=== PATIENT | female | born 1970 | race American Indian/Alaskan Native ===

== ENCOUNTER 2017-10-13 09:43 | Inpatient (IN) | payer OTHER ==
--- NOTE | 2017-10-13 10:39 | ED PDOC ---
Arrival/HPI - General Chief Complaint: Abnormal Skin Integrity Time Seen by Provider: 10/13/17 09:54 Historian: Patient - History of Present Illness Narrative History of Present Illness (Text): 10/13/17 10:36 47yo female with PMHx of Diabetes referred to ED by Dr. Kathleen for left arm infection. Patient reports few weeks history of chest and abdominal wall infection. States she has been on oral antibiotics and developed the left arm infection few days ago. She saw her PMD today and was referred to ED. she denies fever, chills, nausea, vomiting, abdominal pain, chest pain, any other complaint. Past Medical History - Provider Review Nursing Documentation Reviewed: Yes - Cardiac Hx Cardiac Disorders: No - Pulmonary Hx Respiratory Disorders: Yes Hx Asthma: Yes - Neurological Hx Neurological Disorder: No - HEENT Hx HEENT Disorder: No - Renal Hx Renal Disorder: No - Endocrine/Metabolic Hx Endocrine Disorders: Yes Hx Diabetes Mellitus Type 2: Yes - Hematological/Oncological Hx Blood Disorders: No - Integumentary Hx Dermatological Disorder: Yes Hx Cellulitis: Yes - Musculoskeletal/Rheumatological Hx Musculoskeletal Disorders: No - Gastrointestinal Hx Gastrointestinal Disorders: No - Genitourinary/Gynecological Hx Genitourinary Disorders: Yes (PCOS) - Psychiatric Hx Psychophysiologic Disorder: Yes Hx Anxiety: Yes Hx Depression: Yes Hx Substance Use: No - Surgical History Hx Section: Yes Hx Orthopedic Surgery: Yes Other/Comment: Multiple cyst removal, breast reduction Family/Social History - Physician Review Nursing Documentation Reviewed: Yes Family/Social History: Unknown Family HX Smoking Status: Light Smoker < 10 Cigarettes Daily Hx Alcohol Use: No Hx Substance Use: No Allergies/Home Meds Allergies/Adverse Reactions: Allergies amoxicillin Allergy (Verified 10/13/17 10:05) ITCHING ciprofloxacin [From Cipro] Allergy (Verified 10/13/17 10:05) ITCHING shellfish derived Allergy (Verified 10/13/17 10:05) ANAPHYLAXIS sulfamethoxazole [From Bactrim] Allergy (Verified 10/13/17 10:05) RASH if dose is >500mg tree nut Allergy (Verified 10/13/17 10:05) ANAPHYLAXIS trimethoprim [From Bactrim] Allergy (Verified 10/13/17 10:05) RASH flu vaccine Allergy (Uncoded 10/13/17 14:42) VOMITING vomited x 2 hours Home Medications: Home Meds Medication Instructions Recorded Confirmed Escitalopram [Lexapro] 10 mg PO DAILY 10/13/17 10/13/17 Fluconazole [Diflucan] 150 mg PO DAILY 10/13/17 10/13/17 Linaclotide [Linzess] 72 mcg PO DAILY 10/13/17 10/13/17 Losartan [Cozaar] 25 mg PO DAILY 10/13/17 10/13/17 Naproxen [Naprosyn] 500 mg PO BID 10/13/17 10/13/17 Review of Systems - Physician Review All systems were reviewed & negative as marked: Yes - Review of Systems Constitutional: Normal Eyes: Normal ENT: Normal Respiratory: Normal Cardiovascular: Normal Gastrointestinal: Normal Genitourinary Female: Normal Musculoskeletal: Normal Skin: Abscess (LEft arm/abdominal wall/chest wall), Cellulitis Neurological: Normal Endocrine: Normal Hemo/Lymphatic: Normal Psychiatric: Normal Physical Exam Vital Signs Reviewed: Yes Vital Signs Pulse Resp BP Pulse Ox 10/13/17 12:21 87 16 125/80 99 Temperature: Afebrile Blood Pressure: Normal Pulse: Regular Respiratory Rate: Normal Appearance: Positive for: Well-Appearing, Non-Toxic, Comfortable Pain Distress: None Mental Status: Positive for: Alert and Oriented X 3 - Systems Exam Head: Present: Atraumatic, Normocephalic Pupils: Present: PERRL Extroacular Muscles: Present: EOMI Conjunctiva: Present: Normal Mouth: Present: Moist Mucous Membranes Neck: Present: Normal Range of Motion Respiratory/Chest: Present: Clear to Auscultation, Good Air Exchange. No: Respiratory Distress, Accessory Muscle Use Cardiovascular: Present: Regular Rate and Rhythm, Normal S1, S2. No: Murmurs Abdomen: No: Tenderness, Distention, Peritoneal Signs Back: Present: Normal Inspection Upper Extremity: Present: Normal Inspection. No: Cyanosis, Edema Lower Extremity: Present: Normal Inspection. No: Edema Neurological: Present: GCS=15, CN II-XII Intact, Speech Normal Skin: Present: Warm, Dry, Normal Color, Abscess (Approximately 5 x 3cm area of induration to right proximal upper arm with overlaying erythema. Warm to touch. Drainging abscess noted under right breast and abdominal wall.). No: Rashes Psychiatric: Present: Alert, Oriented x 3, Normal Insight, Normal Concentration Medical Decision Making ED Course and Treatment: 10/13/17 19:43 Pt presented for stated history. She was hemodynamically stable. Lab was unremarkable without leukocytosis. Pt failed outpt abx and will be admitted for IV abx Vanco and Rocephin ordered. Blood culture pending Case was DW Dr. Kathleen and pt was admitted to his service. He requested Dr. Lantigua and Dr. Bojorquez consult. 0 - Lab Interpretations Lab Results: 10/13/17 10:30 10/13/17 10:30 Lab Results 10/13/17 10:30: Sodium 142, Potassium 3.6, Chloride 102, Carbon Dioxide 26, Anion Gap 18, BUN 7, Creatinine 0.5 L, Est GFR ( Amer) > 60, Est GFR (Non -Af Amer) > 60, Random Glucose 259 H, Calcium 9.2, Total Bilirubin 0.5, AST 25, ALT 15, Alkaline Phosphatase 88, Total Protein 7.6, Albumin 4.1, Globulin 3.5, Albumin/Globulin Ratio 1.2 10/13/17 10:30: Urine Color Light red, Urine Appearance Cloudy, Urine pH 6.0, Ur Specific [place] 1.020, Urine Protein 30 H, Urine Glucose (UA) >=1000, Urine Ketones Negative, Urine Blood Large H, Urine Nitrate Negative, Urine Bilirubin Negative, Urine Urobilinogen 1.0 H, Ur Leukocyte Esterase Negative, Urine RBC Tntc, Urine WBC 2 - 5, Ur Epithelial Cells 6 - 8, Urine Bacteria Many 10/13/17 10:30: PT 11.9, INR 1.03, APTT 34.7 10/13/17 10:30: WBC 10.6, RBC 4.55, Hgb 14.2, Hct 40.6, MCV 89.2, MCH 31.2, MCHC 35.0, RDW 12.7, Plt Count 348, MPV 8.8, Gran % 64.7, Lymph % (Auto) 27.8, [place] % (Auto) 5.7, Eos % (Auto) 1.5, Baso % (Auto) 0.3, Gran # 6.84 H, Lymph # ( Auto) 2.9, [place] # (Auto) 0.6, Eos # (Auto) 0.2, Baso # (Auto) 0.03 - Medication Orders Current Medication Orders: Escitalopram Oxalate (Lexapro) 10 mg PO DAILY RICCARDO Meropenem (Merrem Iv 1 Gm Premix) 50 mls @ 100 mls/hr IVPB Q8 RICCARDO PRN Reason: Protocol Stop: 10/21/17 22:01 Daptomycin 590 mg/ Sodium (Chloride) 100 mls @ 200 mls/hr IV Q24H RICCARDO Stop: 10/22/17 19:01 Insulin Human Regular (Humulin R Med) 0 units SC ACHS RICCARDO PRN Reason: Protocol Losartan Potassium (Cozaar) 25 mg PO DAILY RICCARDO Discontinued Medications Diphenhydramine HCl (Benadryl) 25 mg IVP STAT STA Stop: 10/13/17 11:35 Last Admin: 10/13/17 11:45 Dose: 25 mg IVP Administration Document 10/13/17 11:45 MS (Rec: 10/13/17 11:45 MS [id number]) Charges for Administration # of IVP Administrations 1 Ceftriaxone Sodium (Rocephin 1 Gram Ivpb) 1 gm in 100 mls @ 200 mls/hr IVPB STAT STA PRN Reason: Protocol Stop: 10/13/17 11:10 Last Admin: 10/13/17 11:21 Dose: 200 mls/hr eMAR Start Stop Document 10/13/17 11:21 MS (Rec: 10/13/17 11:23 MS [id number]) Intravenous Solution Start Date 10/13/17 Start Time 11:23 End Date 10/13/17 End time 11:53 Total Infusion Time 30 Vancomycin HCl (Vancomycin 1gm) 1 gm in 250 mls @ 167 mls/hr IVPB STAT STA PRN Reason: Protocol Stop: 10/13/17 12:11 Last Admin: 10/13/17 11:45 Dose: 167 mls/hr eMAR Start Stop Document 10/13/17 11:45 MS (Rec: 10/13/17 11:45 MS [id number]) Intravenous Solution Start Date 10/13/17 Start Time 11:45 End Date 10/13/17 End time 13:15 Total Infusion Time 90 Pneumococcal Polyvalent Vaccine (Pneumovax 23 Vaccine) 0.5 ml IM .ONCE ONE Stop: 10/13/17 15:01 Disposition/Present on Arrival - Present on Arrival Any Indicators Present on Arrival: No History of DVT/PE: No History of Uncontrolled Diabetes: No Urinary Catheter: No History of Decub. Ulcer: No History Surgical Site Infection Following: None - Disposition Have Diagnosis and Disposition been Completed?: Yes Diagnosis: Cellulitis, Abscess Disposition: HOSPITALIZED Disposition Time: 11:50 Patient Problems: Current Active Problems Problem Status Onset Abscess Acute Cellulitis Acute Condition: STABLE
[2017-10-13] MEDS ORDERED: cefTRIAXone 1 gm 1 GM/100 ML BAG IVPB STA (10:41)
[2017-10-13] MEDS ORDERED: Vancomycin 1gm in NS 250ml 1 GM/250 ML BAG IVPB STA (10:42)
[2017-10-13 10:47] LABS: BASO # 0.03 K/mm3 (0.0-2.0); BASO % 0.3 % (0.0-3.0); EOS # 0.2 (0.0-0.7); EOS % 1.5 % (1.5-5.0); GRAN # 6.84 (1.4-6.5); GRAN % 64.7 % (50.0-68.0); HEMOGLOBIN 14.2 g/dL (12.0-16.0); LYMPH # 2.9 (1.2-3.4); LYMPH % 27.8 % (22.0-35.0); MEAN CELL VOLUME 89.2 fl (80.0-105.0); MEAN CORPUSCULAR HEMOGLOBIN 31.2 pg (25.0-35.0); MEAN PLATELET VOLUME 8.8 fl (7.0-11.0); MONO # 0.6 (0.1-0.6); MONO % 5.7 % (1.0-6.0); RBC 4.55 10^6/uL (3.5-6.1); RED CELL DISTRIBUTION WIDTH 12.7 % (11.5-14.5); URINE BILIRUBIN NEGATIVE (NEGATIVE); URINE BLOOD LARGE (NEGATIVE); URINE GLUCOSE (UA) >=1000 mg/dL (NEGATIVE); URINE LEUKOCYTE ESTERASE NEGATIVE Leu/uL (NEGATIVE); URINE PROTEIN 30 mg/dL (<30 mg/dL); WHITE BLOOD COUNT 10.6 10^3/ul (4.5-11.0)
[2017-10-13 10:52] LABS: URINE APPEARANCE CLOUDY (CLEAR); URINE COLOR LIGHT RED (YELLOW)
[2017-10-13 10:58] LABS: URINE BACTERIA MANY (NEG); URINE RBC TNTC /hpf (0-2)
[2017-10-13 11:02] LABS: INR 1.03 (0.93-1.08); PARTIAL THROMBOPLASTIN TIME 34.7 Seconds (25.1-36.5); PROTHROMBIN TIME 11.9 SECONDS (9.4-12.5)
[2017-10-13] MEDS ORDERED: DiphenhydrAMINE 50 mg/ml Inj IVP STA (11:34)
[2017-10-13] MEDS ORDERED: DiphenhydrAMINE 50 mg/ml Inj ONE (11:35)
[2017-10-13 12:06] LABS: ALB/GLOB RATIO 1.2 (1.1-1.8); ALBUMIN 4.1 g/dL (3.0-4.8); ALT/SGPT 15 U/L (7-56); AST/SGOT 25 U/L (14-36); BLOOD UREA NITROGEN 7 mg/dL (7-21); CALCIUM 9.2 mg/dL (8.4-10.5); GFR AFRICAN-AMERICAN > 60; GFR NON-AFRICAN AMERICAN > 60
--- NOTE | 2017-10-13 12:25 | CP.PCM.CON ---
History of Present Illness - History of Present Illness History of Present Illness: Parker Sanchez PGY 1 surgery consult note for Dr. Lantigua Ms. Domingo is a 47-year-old -[place] female with a past medical history of DM 2, asthma, multiple abscesses status post I&D and cellulitis who presents to the ED for left axillary swelling and pain; patient also states that she has multiple other abscesses that are draining, including an her right breast crease and in the groin. General surgery is consulted for evaluation and management of the abscesses. Patient denies fevers, nausea/vomiting. She does however complain of chills and extreme pain specifically in the left axilla that is exacerbated by touch or movement. 12-pt ROS was reviewed and examined and is otherwise unremarkable. PMH: As above PSH: , multiple I&D's, breast reduction Meds: As per MAR Allergies: Several antibiotics as stated on [employer] SHX: Tobacco smoking, denies EtOH or substance abuse. Admits to using CBD oil without THC to control her pain. Review of Systems - Review of Systems All systems: reviewed and no additional remarkable complaints except (as per MAR ) Past Patient History - Past Social History Smoking Status: Light Smoker < 10 Cigarettes Daily Alcohol: None Drugs: Denies - CARDIAC Hx Cardiac Disorders: No - PULMONARY Hx Respiratory Disorders: Yes Hx Asthma: Yes - NEUROLOGICAL Hx Neurological Disorder: No - HEENT Hx HEENT Problems: No - RENAL Hx Chronic Kidney Disease: No - ENDOCRINE/METABOLIC Hx Endocrine Disorders: Yes Hx Diabetes Mellitus Type 2: Yes - HEMATOLOGICAL/ONCOLOGICAL Hx Blood Disorders: No - INTEGUMENTARY Hx Dermatological Problems: Yes Hx Cellulitis: Yes - MUSCULOSKELETAL/RHEUMATOLOGICAL Hx Musculoskeletal Disorders: No - GASTROINTESTINAL Hx Gastrointestinal Disorders: No - GENITOURINARY/GYNECOLOGICAL Hx Genitourinary Disorders: Yes (PCOS) - PSYCHIATRIC Hx Psychophysiologic Disorder: Yes Hx Anxiety: Yes Hx Depression: Yes Hx Substance Use: No - SURGICAL HISTORY Hx Section: Yes Hx Orthopedic Surgery: Yes Other/Comment: Multiple cyst removal, breast reduction Meds Allergies/Adverse Reactions: Allergies Allergy/AdvReac Type Severity Reaction Status Date / Time amoxicillin Allergy ITCHING Verified 10/13/17 10:05 ciprofloxacin [From Cipro] Allergy ITCHING Verified 10/13/17 10:05 shellfish derived Allergy ANAPHYLAXIS Verified 10/13/17 10:05 sulfamethoxazole Allergy RASH Verified 10/13/17 10:05 [From Bactrim] tree nut Allergy ANAPHYLAXIS Verified 10/13/17 10:05 trimethoprim [From Bactrim] Allergy RASH Verified 10/13/17 10:05 Physical Exam - Constitutional Appears: Well, Non-toxic, No Acute Distress - Head Exam Head Exam: NORMAL INSPECTION - Eye Exam Eye Exam: Normal appearance - ENT Exam ENT Exam: Mucous Membranes Moist - Neck Exam Neck exam: Positive for: Normal Inspection - Respiratory Exam Respiratory Exam: NORMAL BREATHING PATTERN - Cardiovascular Exam Cardiovascular Exam: RRR - GI/Abdominal Exam GI & Abdominal Exam: Soft. absent: Distended, Tenderness - Expanded Upper Extremities Exam Left Upper Arm exam: swelling (diffuse redness and swelling from axillary line @ nipple level up to mid upper arm level on medial side of arm), tenderness ( extreme in axilla region) - Back Exam Back exam: NORMAL INSPECTION - Neurological Exam Neurological exam: Alert - Psychiatric Exam Psychiatric exam: Anxious - Skin Additional comments: as above Results - Vital Signs Recent Vital Signs: Last Vital Signs Temp Pulse 87 10/13/17 12:21 Resp 16 10/13/17 12:21 BP 125/80 10/13/17 12:21 Pulse Ox 99 10/13/17 12:21 - Labs Result Diagrams: 10/13/17 10:30 10/13/17 10:30 Assessment & Plan - Assessment and Plan (Free Text) Assessment: 47-year-old female with a past medical history of DM 2 and multiple abscesses who presents with tender localized abscess in the left axilla. Plan: Admit patient to [facility] Plan for OR for tomorrow at noon for I&D NPO past midnight Continue IV antibiotics per ID Apply warm compresses to region Analgesia PRN pain Monitor for signs of infection Further recs per attending Case was reviewed and discussed with Dr. Lantigua
[2017-10-13 14:59] VITALS: BMI 31.7
[2017-10-13] MEDS ORDERED: Pneumococcal 23-Valent Vaccine IM ONE (15:00)
[2017-10-13] MEDS ORDERED: DAPTOmycin 500 mg Inj (Cubicin) IV SCH (19:00)
[2017-10-13] MEDS: Meropenem IV 1 gm in NS 50 ML IVPB SCH (21:32)
[2017-10-13] MEDS ORDERED: Linezolid 600 mg in D5W 300 ml 600 MG/300 ML BAG IVPB SCH (22:00)
[2017-10-13] MEDS: Insulin Reg-MEDIUM-Coverage SC SCH (22:39)
[2017-10-13] MEDS ORDERED: HYDROmorphone 0.5 mg/0.5 ml ISec IVP STA (22:43)
[2017-10-14] MEDS: Meropenem IV 1 gm in NS 50 ML IVPB SCH ×3 (05:53→21:27)
[2017-10-14 06:58] LABS: BASO # 0.03 K/mm3 (0.0-2.0); BASO % 0.2 % (0.0-3.0); EOS # 0.1 (0.0-0.7); EOS % 0.7 % (1.5-5.0); GRAN # 12.62 (1.4-6.5); HEMOGLOBIN 13.6 g/dL (12.0-16.0); LYMPH % 17.7 % (22.0-35.0); MEAN CELL VOLUME 88.1 fl (80.0-105.0); MEAN CORPUSCULAR HEMOGLOBIN 30.5 pg (25.0-35.0); MEAN CORPUSCULAR HGB CONC 34.6 g/dl (31.0-37.0); MEAN PLATELET VOLUME 8.9 fl (7.0-11.0); MONO # 1.1 (0.1-0.6); MONO % 6.4 % (1.0-6.0); RBC 4.46 10^6/uL (3.5-6.1); RED CELL DISTRIBUTION WIDTH 12.5 % (11.5-14.5); WHITE BLOOD COUNT 16.8 10^3/ul (4.5-11.0)
[2017-10-14 07:16] LABS: INR 1.12 (0.93-1.08); PROTHROMBIN TIME 12.9 SECONDS (9.4-12.5)
[2017-10-14 07:19] LABS: ALB/GLOB RATIO 1.1 (1.1-1.8); ALBUMIN 3.7 g/dL (3.0-4.8); ALT/SGPT 23 U/L (7-56); AST/SGOT 16 U/L (14-36); BLOOD UREA NITROGEN 7 mg/dL (7-21); CALCIUM 8.9 mg/dL (8.4-10.5); GFR AFRICAN-AMERICAN > 60; GFR NON-AFRICAN AMERICAN > 60
[2017-10-14] MEDS ORDERED: HYDROmorphone 0.5 mg/0.5 ml ISec IVP PRN ×2 (08:14→14:24)
[2017-10-14] MEDS ORDERED: Albuterol 0.083% Inhal Sol (2.5 mg/3 mL) UD IH PRN (08:14)
--- NOTE | 2017-10-14 08:24 | CON ---
DATE: 10/13/2017 LOCATION: The patient is seen in bed earlier today in room 566, bed 1. CHIEF COMPLAINT: Left arm and axillary erythema and pain times several days. HISTORY: This is a 47-year-old female with obesity with BMI of 31, diabetes mellitus, asthma, multiple abscesses, depression and anxiety, who was admitted with a left arm erythema and axillary area tenderness and pain times several days and the patient states low-grade fevers at home. No nausea or vomiting. No chest pain. No abdominal pain, diarrhea or constipation. REVIEW OF SYSTEMS: Reveals the 12-point review of systems is performed. PAST MEDICAL HISTORY: Significant for diabetes mellitus, asthma, multiple abscesses, depression, anxiety and obesity. PAST SURGICAL HISTORY: Significant for , breast reduction and orthopedic surgery. ALLERGIES: THE PATIENT IS ALLERGIC TO AMOXICILLIN, CIPRO, SULFAMETHOXAZOLE AND TRIMETHOPRIM, QUESTIONABLE RASH. MEDICATIONS AT HOME: Reveals the patient to be on Naprosyn, Cozaar, Lexapro. PHYSICAL EXAMINATION: GENERAL: The patient is in bed. VITAL SIGNS: Temperature 98, blood pressure 120/70, respiratory rate of 18, heart rate of 87. HEENT: Examination is unremarkable. NECK: Supple. LUNGS: Have decreased breath sounds. HEART: Normal S1 and S2. ABDOMEN: Soft, nontender. EXTREMITIES: Examination of the left arm reveals the patient has significant erythema and edema, tender to touch and there is area mildly indurated in the left arm and the left axilla. LABORATORY DATA: Laboratory examination reveals a white count of 10.6, hemoglobin of 14, platelets of 348. Chemistries reveals a BUN of 7, creatinine 0.5. Urinalysis is noted. wbc's. Emergency room chart is reviewed. [place]' consultation is reviewed. ASSESSMENT AND PLAN: This is a 47-year-old female with diabetes, asthma, anxiety, obesity, depression, now presenting with multiple allergies, who is on antidepressant with left arm and left axillary cellulitis. I will treat the patient with daptomycin and meropenem. THE PATIENT HAS QUESTIONABLE ALLERGY TO VANCOMYCIN IN THE EMERGENCY ROOM AND ROCEPHIN IN THE EMERGENCY ROOM WITH MULTIPLE ALLERGIES. The patient is on Lexapro. Unable to use Zyvox, so we used daptomycin and meropenem and follow the patient clinically. May consider a CAT of the axillary and arm to rule out an abscess. We will follow closely with you. Alberto Bojorquez MD
[2017-10-14] MEDS: Insulin Reg-MEDIUM-Coverage SC SCH ×4 (08:27→21:42)
--- NOTE | 2017-10-14 13:00 | CARD ---
APPROVED REPORT EKG Measurement Heart [id number] <Conclusion> Sinus tachycardia Rightward axis Possible Inferior infarct, age undetermined Abnormal ECG
[2017-10-14] MEDS ORDERED: Lidocaine 1% Inj (20ml) ONE (13:04)
[2017-10-14] MEDS ORDERED: Bupivacaine 0.5% Inj(30mL) ONE (13:04)
[2017-10-14] MEDS ORDERED: Propofol 10 mg/ml Inj (20 ML) ONE (13:14)
[2017-10-14] MEDS ORDERED: Midazolam 2 MG/2 ML VIAL ONE (13:14)
--- NOTE | 2017-10-14 14:22 | PCM.SURG1 ---
Surgeon's Initial Post Op Note - Surgeon's Notes Surgeon: Dr. Lantigua Piano Assembler: Lainey Mariano, PGY-1 Type of Anesthesia: General LMA Anesthesia Administered By: Dr. Landeros Pre-Operative Diagnosis: left axilla abscess Operative Findings: see op report Post-Operative Diagnosis: Left axilla abscess Operation Performed: Incision and drainage of left axilla Specimen/Specimens Removed: purulent discharge Estimated Blood Loss: EBL {In ML}: 5 Blood Products Given: N/A Drains Used: Elizabeth (x2) Post-Op Condition: Good Date of Surgery/Procedure: 10/14/17 Time of Surgery/Procedure: 14:22
[2017-10-14] MEDS ORDERED: Oxycodone/Acetaminophen 5/325 mg Tab PO PRN (14:26)
[2017-10-14] MEDS ORDERED: Lactated Ringer's 1,000 ML IV SCH (14:30)
--- NOTE | 2017-10-14 18:57 | HP ---
HISTORY OF PRESENT ILLNESS: A 47-year-old black female with history of insulin-dependent diabetes mellitus, hypertension, COPD, tobacco abuse. The patient has a history of multiple episodes of suppurative hidradenitis, particularly in the axilla, below the breast and in the groin. The patient has been operated by Dr. Lora on several occasions over the last 10 years. The patient initially developed a left axilla mass and swelling with drainage, also some drainage of the right breast. The patient developed some low-grade fevers, chills, severe pain, inability to adduct the left upper extremity, redness and swelling extending from the left axilla to the left upper arm. The patient was seen in my office, had a fluctuant mass palpated with severe pain in the left axilla with cellulitis of the left upper extremity, admitted to the hospital through the emergency room. PHYSICAL EXAMINATION: GENERAL: Shows a well-developed, well-nourished black female in pain, approximately 8/10. CHEST: Clear to auscultation and percussion. HEART: Regular sinus rhythm. ABDOMEN: Benign. EXTREMITIES: Without cyanosis, clubbing, or edema. There are multiple surgical scars in both axilla under the breast and in the groin. There is a large fluctuant mass in the left axilla extending to the left upper extremity with erythema and cellulitic changes in the skin of the left upper extremity. IMPRESSION: Suppurative hidradenitis with abscess in the left axilla with cellulitis in the left upper arm, history of diabetes mellitus, and chronic obstructive pulmonary disease. Ranjit Kathleen MD
[2017-10-14 22:34] VITALS: RESP 20
--- NOTE | 2017-10-14 23:09 | PN ---
DATE: 10/14/2017 SUBJECTIVE: The patient is in bed, in no acute distress, nontoxic. No fevers and chills. The patient was seen early this morning in 566, bed 1. PHYSICAL EXAMINATION VITAL SIGNS: Temperature is 99, blood pressure is 140/80, respiratory rate of 18. HEENT: Examination of HEENT is unremarkable. NECK: Supple. LUNGS: Have decreased breath sounds. HEART: Normal S1, S2. ABDOMEN: Soft. EXTREMITIES: Examination of arms, still have erythema and there is induration, however, the erythema is less. LABORATORY DATA: Laboratory examination reveals a white count of 16,800. BUN of 7, creatinine of 0.7. Urinalysis is noted and microbiology reveals the blood cultures are negative and the patient is scheduled for OR today. ASSESSMENT AND PLAN: A 47-year-old female with diabetes and asthma, anxiety, obesity, depression, who was admitted with multiple allergies with left arm and left axilla cellulitis, now with leukocytosis, on daptomycin and meropenem. The patient is scheduled for OR today for incision and drainage and exam with ultrasound. We will follow closely with you. Review of orders reveals the patient is on daptomycin and meropenem to be active. We are awaiting for the operating room culture results.. Alberto Bojorquez MD
[2017-10-15] MEDS ORDERED: Pantoprazole 40 mg EC Tab PO SCH (06:00)
[2017-10-15] MEDS: Meropenem IV 1 gm in NS 50 ML IVPB SCH (06:05)
[2017-10-15 07:32] LABS: BASO # 0.03 K/mm3 (0.0-2.0); BASO % 0.2 % (0.0-3.0); EOS # 0.2 (0.0-0.7); EOS % 1.3 % (1.5-5.0); GRAN # 9.31 (1.4-6.5); GRAN % 68.3 % (50.0-68.0); HEMOGLOBIN 12.9 g/dL (12.0-16.0); LYMPH # 3.4 (1.2-3.4); LYMPH % 24.6 % (22.0-35.0); MEAN CELL VOLUME 88.3 fl (80.0-105.0); MEAN CORPUSCULAR HEMOGLOBIN 30.9 pg (25.0-35.0); MEAN PLATELET VOLUME 8.4 fl (7.0-11.0); MONO # 0.8 (0.1-0.6); MONO % 5.6 % (1.0-6.0); RBC 4.18 10^6/uL (3.5-6.1); RED CELL DISTRIBUTION WIDTH 12.5 % (11.5-14.5); WHITE BLOOD COUNT 13.7 10^3/ul (4.5-11.0)
[2017-10-15 07:44] VITALS: BP 119/72; PULSE 98; TEMP 98.6; O2SAT 100
--- NOTE | 2017-10-15 08:07 | OP ---
PROCEDURE DATE: 10/14/2017 SURGEON: Aime Lantigua MD SUPERVISOR BELT AND LINK ASSEMBLY: Lainey Mariano DO PGY-1 ANESTHESIOLOGIST: Dr. Landeros. ANESTHESIA: General LMA. PREOPERATIVE DIAGNOSIS: Left axillary abscess. POSTOPERATIVE DIAGNOSIS: Left axillary abscess. FINDINGS: Left axillary abscess. BLOOD LOSS: 5 mL. DRAINS: Dora x2. COMPLICATIONS: None. DESCRIPTION OF PROCEDURE: Patient was brought into the operating room from the floor. Time out was performed, name, identification number and marked operative site were confirmed. Patient was then transferred to the operating table and positioned appropriately, padded as necessary, axillary roll positioned. General anesthesia was utilized with the LMA mask. Patient was prepped and draped in the usual sterile fashion with chlorhexidine, waiting 3 minutes to after prep prior to draping. The skin was entered with an 18-gauge needle and abscess pocket was found and purulent drainage was removed for culture. A #15 blade was used to incise the pocket in the axilla more distally, purulent drainage was expressed, then a #11 blade was used to make two more incisions in the more proximal axilla with more return of copious amounts of mildly foul smelling purulent drainage. The pockets were explored gingerly with a Caitlin clamp. The wound was lavaged with peroxide and then saline. Two Dora drains were placed into the points of entry, each one was sutured together in a loop. The wound was cleaned and dried. Dry dressing was placed over the wound after hemostasis was confirmed. The patient was awakened and extubated, transported to recovery room in a satisfactory condition. All sponge, instruments and sutures was declared correct at the end of the procedure. Estimated blood loss for this procedure was less than [address] Lantigua was present for the critical portions of the operation. Lainey Mariano DO Aime Lantigua MD [facility]
[2017-10-15] MEDS: Insulin Reg-MEDIUM-Coverage SC SCH (08:30)
--- NOTE | 2017-10-15 08:38 | PN ---
DATE: 10/15/2017 SUBJECTIVE: The patient was seen earlier today. She is awake and alert. She was seen in room 566, bed 1. PHYSICAL EXAMINATION: VITAL SIGNS: Temperature is 99, blood pressure is 149/80, respiratory rate of 18, heart rate of 113. HEENT: Unremarkable. NECK: Supple. LUNGS: Have decreased breath sounds. HEART: Normal S1 and S2. ABDOMEN: Soft, nontender. LABORATORY DATA: Reveals a white count yesterday of 16,800, hemoglobin of 13. Coagulation is noted. BUN of 7, creatinine of 0.5. Urinalysis is noted. Microbiology, blood cultures are negative, OR cultures are pending. Review of the orders reveals the patient to be on daptomycin and meropenem. THE PATIENT IS ALLERGIC TO AMOXICILLIN, CIPRO, SULFA, AND TRIMETHOPRIM, limited options and unable to use Zyvox because of Lexapro. ASSESSMENT AND PLAN: This is a 47-year-old female seen earlier today in 566, bed 1 with diabetes mellitus, asthma, anxiety, obesity, depression, admitted with multiple allergies with a left arm and left axilla cellulitis and abscess, status post incision and drainage, on daptomycin and meropenem. OR cultures pending with a white count yesterday which was elevated to 16,800. We will repeat a CBC this morning. Check on the cultures. Options are limited in this patient, doxycycline for methicillin-resistant Staphylococcus aureus is one possibility since the patient is allergic to amoxicillin, quinolones, and Bactrim. We will check on the CBCs this morning. Alberto Bojorquez MD
--- NOTE | 2017-10-15 09:13 | CP.PCM.PN ---
Subjective - Date & Time of Evaluation Date of Evaluation: 10/15/17 Time of Evaluation: 07:00 - Subjective Subjective: General Surgery Note for Dr. Lantigua Patient seen and examined at bedside. No acute event overnight. Patient is s/p Incision and drainage of left axillary abscess POD#1. Patient states pain has improved. Patient has no complaints today. She will be going home today on oral antibiotics. Objective - Vital Signs/Intake and Output Vital Signs (last 24 hours): Temp Pulse Resp BP Pulse Ox 98.6 F 98 H 20 119/72 100 10/15/17 06:00 10/15/17 06:00 10/15/17 06:00 10/15/17 06:00 10/15/17 06:00 Intake and Output: 10/15/17 10/15/17 06:59 18:59 Intake Total 1680 Balance 1680 - Medications Medications: Current Medications Acetaminophen (Tylenol 325mg Tab) 650 mg PO Q4H PRN PRN Reason: Fever >100.4 F Albuterol Sulfate (Albuterol 0.083% Inhal Renea (2.5 Mg/3 Ml) Ud) 2.5 mg IH [id number] PRN PRN Reason: Wheezing Enoxaparin Sodium (Lovenox) 40 mg SC DAILY RICCARDO PRN Reason: Protocol Escitalopram Oxalate (Lexapro) 10 mg PO DAILY [facility] Last Admin: 10/14/17 10:44 Dose: Not Given Meropenem (Merrem Iv 1 Gm Premix) 50 mls @ 100 mls/hr IVPB Q8 RICCARDO PRN Reason: Protocol Stop: 10/21/17 22:01 Last Admin: 10/15/17 06:05 Dose: 100 mls/hr Daptomycin 590 mg/ Sodium (Chloride) 100 mls @ 200 mls/hr IV Q24H RICCARDO Stop: 10/22/17 19:01 Last Admin: 10/14/17 21:26 Dose: 200 mls/hr Insulin Human Regular (Humulin R Med) 0 units SC ACHS RICCARDO PRN Reason: Protocol Last Admin: 10/15/17 08:30 Dose: 3 unit Ketorolac Tromethamine (Toradol) 30 mg IVP Q6H RICCARDO Last Admin: 10/15/17 08:40 Dose: 30 mg Losartan Potassium (Cozaar) 25 mg PO DAILY [facility] Last Admin: 10/14/17 10:44 Dose: Not Given Oxycodone/Acetaminophen (Percocet 5/325 Mg Tab) 1 tab PO Q4H PRN PRN Reason: Pain, severe (8-10) Stop: 10/17/17 14:27 Pantoprazole Sodium (Protonix Ec Tab) 40 mg PO 0600 RICCARDO Last Admin: 10/15/17 06:06 Dose: 40 mg Tramadol HCl (Ultram) 50 mg PO Q6H PRN PRN Reason: Pain, moderate (4-7) Last Admin: 10/13/17 19:57 Dose: 50 mg - Labs Labs: 10/15/17 07:15 10/14/17 06:30 PT 12.9 SECONDS (9.4-12.5) H 10/14/17 05:00 INR 1.12 (0.93-1.08) H 10/14/17 05:00 APTT 30.0 Seconds (25.1-36.5) 10/14/17 05:00 - Constitutional Appears: No Acute Distress - Head Exam Head Exam: ATRAUMATIC, NORMOCEPHALIC - Eye Exam Eye Exam: Normal appearance - ENT Exam ENT Exam: Mucous Membranes Moist - Respiratory Exam Respiratory Exam: NORMAL BREATHING PATTERN - Cardiovascular Exam Cardiovascular Exam: REGULAR RHYTHM - GI/Abdominal Exam GI & Abdominal Exam: Soft, Normal Bowel Sounds. absent: Tenderness - Extremities Exam Extremities Exam: Normal Capillary Refill Additional comments: left axilla with dressing clean, dry and intact - Back Exam Back Exam: absent: CVA tenderness (L), CVA tenderness (R) - Neurological Exam Neurological Exam: Alert, Awake, CN II-XII Intact, Oriented x3 - Psychiatric Exam Psychiatric exam: Normal Affect, Normal Mood - Skin Skin Exam: Dry, Intact, Normal Color, Warm Assessment and Plan - Assessment and Plan (Free Text) Assessment: 47 F s/p Incision and drainage of left axillary abscess POD#1 Plan: -Patient clear for discharge from surgical standpoint -Patient to go home on Oral antibiotics -Keep area clean and dry -Change dressing daily and as needed -Follow up with Dr. Lantigua as outpatient in 1 week -Discussed with Dr. Grzegorz Mckinney PGY1
[2017-10-15] MEDS ORDERED: Enoxaparin 40 mg Syringe SC SCH (10:00)
--- NOTE | 2017-10-15 10:21 | PN ---
DATE: 10/15/2017 SUBJECTIVE: A 47-year-old black female admitted with suppurative hidradenitis of the left axilla with cellulitis. The patient was taken to Surgery by Dr. Lantigua yesterday. The patient did well with surgery. She has less pain, less swelling. She is afebrile today. Vital signs are stable. The patient will be discharged home. She has [place] drains intact. The patient will be followed as an outpatient. She will be on Augmentin as an outpatient and followed for drain removal next week. Ranjit Kathleen MD
--- NOTE | 2017-10-16 07:41 | DS ---
HISTORY OF PRESENT ILLNESS: A 47-year-old black female with history of [id number] diabetes mellitus, has chronic history of suppurative hidradenitis, mild hypertension. Patient was admitted to the hospital with a left axilla large abscess consistent with suppurative hidradenitis, abscess and also cellulitis of the left upper extremity. Patient was seen in consultation with Dr. Bojorquez, was on IV antibiotics and was also seen in consultation with Dr. Lantigua. Patient was taken to Surgery yesterday, had I and D of this abscess and [place] drains placed. Patient has markedly improved, she will be discharged home today, to be followed as an outpatient. She will be on as an outpatient. FINAL DISCHARGE DIAGNOSES: Left axilla abscess, suppurative hidradenitis, cellulitis of left upper extremity, txa-yihfyra-fhtyqyeaf diabetes mellitus and mild hypertension. Ranjit Kathleen MD
== END 2017-10-15 10:34 | disposition home or self-care (01) | DRG 607 ==
LOC: ED 09:43 → ERH 11:52 → 5RNO 13:09
PROVIDERS: ADMIT Internal Medicine; ATTEND Internal Medicine
PROC: 0X9500Z Drainage of Left Axilla with Drainage Device, Open Approach (ICD-10-PCS; principal; 2017-10-14 13:30)
DX: L73.2 Hidradenitis suppurativa (principal); L02.412 Cutaneous abscess of left axilla; L03.114 Cellulitis of left upper limb; J44.9 Chronic obstructive pulmonary disease, unspecified; I10 Essential (primary) hypertension; E11.9 Type 2 diabetes mellitus without complications; E28.2 Polycystic ovarian syndrome; Z79.4 Long term (current) use of insulin; F32.9 Major depressive disorder, single episode, unspecified; F41.9 Anxiety disorder, unspecified; E66.9 Obesity, unspecified; Z68.31 Body mass index [BMI] 31.0-31.9, adult